=== PATIENT | male | born 1965 | race Caucasian/White ===

== ENCOUNTER 2025-03-17 09:57 | Emergency (ER) | payer OTHER, MEDICAID ==
[~2025-03-17] VITALS: Ht 172.7 cm; Wt 68.0 kg
[~2025-03-17 09:57] MED LIST: ASPI-1497 MT; ATOR20TA MT; GLIP5TAB22 MT; METF-1150 PO
[2025-03-17 09:59] VITALS: O2SAT 96
[2025-03-17] MEDS: ONDANSETRON HCL 4MG/2ML INJ IV ONE (10:54)
[2025-03-17] MEDS ORDERED: VANCOMYCIN 1G PREMIX 200 ML IV ONE (11:00)
[2025-03-17] MEDS: PIPERACILLIN/TAZO 3.375G/50ML 50 ML IV ONE (11:04)
[2025-03-17] MEDS: SODIUM CHLORIDE 0.9% (SEPSIS BOLUS) IV ONE (11:05)
[2025-03-17 11:24] LABS: BASOPHILS % 0.7 % (0.0-2.0); EOSINOPHILS % 2.1 % (0.0-5.0); HEMATOCRIT. 50.1 % (42.0-52.0); HEMOGLOBIN. 17.0 g/dL (14.0-18.0); LYMPHOCYTES % 15.7 % (20.0-50.0); MEAN PLATELET VOLUME 9.5 fl (7.4-10.4); MONOCYTES % 6.2 % (2.0-8.0); NEUTROPHILS % 75.3 % (40.0-76.0); PLATELET 266 x1000/uL (130-400); RED BLOOD CELL COUNT 5.43 mill/uL (4.7-6.1); RED CELL DISTRIBUTION WIDTH 13.9 % (11.6-14.6)
[2025-03-17 11:41] LABS: TROPONIN I HIGH SENSITIVITY 14 ng/L (3.0-53)
[2025-03-17 11:56] LABS: CREATININE 0.9 mg/dL (0.6-1.3); UREA NITROGEN BLOOD 13 mg/dL (9-23)
[2025-03-17 11:58] LABS: ASPARTATE AMINOTRANSFERASE 9 IU/L (<34); BILIRUBIN DIRECT < 0.1 mg/dL (<=3.0); BILIRUBIN TOTAL 0.4 mg/dL (0.1-1.0); PROTEIN TOTAL 7.4 g/dL (6.0-8.3)
[2025-03-17 12:11] LABS: TROPONIN I HIGH SENSITIVITY 14 ng/L (3.0-53)
[2025-03-17 12:18] LABS: CLARITY URINE CLEAR (CLEAR); COLOR URINE YELLOW (YELLOW); GLUCOSE URINE 3+ (NEGATIVE); KETONES URINE NEGATIVE (NEGATIVE); LEUKOCYTE ESTERASE URINE NEGATIVE (NEGATIVE); NITRITE URINE NEGATIVE (NEGATIVE); OCCULT BLOOD URINE NEGATIVE (NEGATIVE); PH URINE 5.0 (4.5-8.0); PROTEIN URINE NEGATIVE (NEGATIVE); SPECIFIC GRAVITY URINE 1.042 (1.005-1.030); UROBILINOGEN URINE 0.2 E.U./dL (0.2-1.0)
[2025-03-17 12:30] VITALS: TEMP 36.6
[2025-03-17] MEDS ORDERED: DEXTROSE 50% WATER 50ML SYRINGE IV PRN (12:30)
[2025-03-17 12:39] LABS: *AMPHETAMINES SCREEN URINE PRESUMPTIVE POSITIVE (NEGATIVE); *BARBITURATES SCREEN URINE NEGATIVE (NEGATIVE); *BENZODIAZEPINES SCREEN URINE NEGATIVE (NEGATIVE); *COCAINE SCREEN URINE NEGATIVE (NEGATIVE); CANNABINOID URINE SCREEN NEGATIVE (NEGATIVE); ECSTASY MDMA SCREEN URINE NEGATIVE (NEGATIVE); METHADONE URINE SCREEN NEGATIVE (NEGATIVE); OPIATES URINE SCREEN NEGATIVE (NEGATIVE); PHENCYCLIDINE URINE SCREEN NEGATIVE (NEGATIVE)
[2025-03-17 12:49] LABS: BACTERIA URINE NONE SEEN; RBC URINE NONE SEEN /hpf (0-2); SQUAMOUS EPITHELIAL CELL URINE RARE /lpf (RARE/1+); WBC URINE 0-2 /hpf (0-2); YEAST URINE NONE SEEN
[2025-03-17] MEDS: BLOOD SUGAR DIAGNOSTIC STRIP TEST SCH (13:00)
[2025-03-17] MEDS: INSULIN LISPRO 100 UNITS/ML SUBCUT STA (14:36)
[2025-03-17 14:45] VITALS: BP 121/92; PULSE 95; RESP 13; O2SAT 100
[2025-03-17] MEDS: INSULIN LISPRO 100 UNITS/ML SUBCUT SCH (14:54)
== END 2025-03-17 14:54 | disposition home or self-care (01) ==
LOC: ER 09:57
DX: E11.65 Type 2 diabetes mellitus with hyperglycemia (principal); E78.00 Pure hypercholesterolemia, unspecified; F17.200 Nicotine dependence, unspecified, uncomplicated; I10 Essential (primary) hypertension; I25.2 Old myocardial infarction; Z55.6 Problems related to health literacy; R06.02 Shortness of breath; Z79.82 Long term (current) use of aspirin; Z79.84 Long term (current) use of oral hypoglycemic drugs; Z79.899 Other long term (current) drug therapy; Z91.128 Patient's intentional underdosing of medication regimen for other reason; Z91.148 Patient's other noncompliance with medication regimen for other reason
CPT/HCPCS: 80076; 80305; 80048; 81003; 80320; 82962; 83880; 83605; 83690; 83735; 85025; 87040; 84484; 36415; 84145; 71045; 93005; 96365; 96372; 96375; 99285; J1815; J2405; J2543; J7030; G0480